=== PATIENT | male | born 1980 | race Caucasian/White ===

== ENCOUNTER 2019-10-01 10:04 | Emergency (ER) | payer MEDICAID, OTHER ==
[2019-10-01] MEDS ORDERED: Lidocaine 1% with EPINEPHrine 1:100,000 10 ML MDV INFILT ONE (10:05)
[2019-10-01] MEDS ORDERED: Diphtheria,Pertussis(Acell),Tetanus Vaccine 0.5 ML SDV IM ONE (11:02)
--- NOTE | 2019-10-01 11:08 | EDM.PDOC ---
ED HPI GENERAL MEDICAL PROBLEM - General Stated Complaint: CUT FINGER ON LEFT HAND Time Seen by Provider: 10/01/19 10:10 Source of Information: Reports: Patient History Limitations: Reports: No Limitations - History of Present Illness INITIAL COMMENTS - FREE TEXT/NARRATIVE: was digging behind his couch and brought his and out and noted a ut that was bleeding from the left middle finger , not able to control bleeding. Able to move finger no numbness or tingling noted. has not had tetanus vaccine - Related Data Allergies Allergy/AdvReac Type Severity Reaction Status Date / Time No Known Allergies Allergy Verified 10/01/19 11:05 Home Meds: Home Meds traZODone 50 mg PO BEDTIME 12/23/14 [History] Past Medical History - Past Health History Medical/Surgical History: Denies Medical/Surgical History Review of Systems - Review of Systems Review Of Systems: Comprehensive ROS is negative, except as noted in HPI. ED EXAM, GENERAL - Physical Exam Exam: See Below Exam Limited By: No Limitations General Appearance: Alert, WD/WN, No Apparent Distress Extremities: Normal Inspection Neurological: Alert, Oriented Psychiatric: Normal Affect Skin Exam: Other (laceration of ventral surface of the 3rd finger about 4cm lond a 0.3cm deep) Lymphatic: No Adenopathy ED TRAUMA EXTREMITY PROCEDURES - Laceration/Wound Repair Left Digit - 3rd (Middle) Lac/Wound Length In cm: 4 Appearance: Superficial, Irregular, Clean Distal NVT: Neuro & Vascular Intact Anesthetic Type: Digital Local Anesthesia - Lidocaine (Xylocaine): 1% with EPI Local Anesthetic Volume: 4cc Skin Prep: Chlorhexidine (Hibiciens), Saline, Sterile Drape Saline Irrigation (cc's): 15 Exploration/Debridement/Repair: Wound Explored Closed With: Sutures Suture Size: 5-0 # of Sutures: 6 Suture Type: Interrupted, Simple Sterile Dressing Applied: Nurse Tetanus Status Addressed: Yes Complications: No Course - Orders/Labs/Meds Orders: Active Orders 24 hr Category Date Time Status Vaccines to be Administered [RC] PER UNIT ROUTINE Care 10/01/19 11:02 Ordered Meds: Medications Discontinued Medications Generic Name Dose Route Start Last Admin Trade Name Freq PRN Reason Stop Dose Admin Diphtheria/Tetanus/Acell Pertussis 0.5 ml 10/01/19 11:02 Adacel IM 10/01/19 11:03 .ONCE ONE Departure - Departure Time of Disposition: 11:10 Disposition: Home, Self-Care 01 Condition: Good Clinical Impression: Laceration of finger of left hand - Discharge Information *PRESCRIPTION DRUG MONITORING PROGRAM REVIEWED*: Not Applicable *COPY OF PRESCRIPTION DRUG MONITORING REPORT IN PATIENT SHAHZAD: Not Applicable Instructions: Laceration Care, Adult, VIS, Diphtheria, Tetanus, and Pertussis ( DTaP) - [facility] [place] (01/14/2007), Wound Care, Adult, Sutured Wound Care, Stitches, Marshall, or Adhesive Wound Closure, [id number] Referrals: Landen Webber PA [Primary Care Provider] - Forms: ED Department Discharge - My Orders Last 24 Hours: My Active Orders 10/01/19 11:02 Vaccines to be Administered [RC] PER UNIT ROUTINE - Assessment/Plan Last 24 Hours: My Active Orders 10/01/19 11:02 Vaccines to be Administered [RC] PER UNIT ROUTINE
[2019-10-01 14:27] VITALS: BP 151/103; PULSE 91
== END 2019-10-01 11:20 | disposition home or self-care (01) ==
LOC: FB.ED 10:04
DX: S61.213A Laceration without foreign body of left middle finger without damage to nail, initial encounter (principal); Z23 Encounter for immunization; W45.8XXA Other foreign body or object entering through skin, initial encounter; Y93.89 Activity, other specified
CPT/HCPCS: 12002; 90471; 90715; 99282

== ENCOUNTER 2019-10-22 17:39 | Emergency (ER) | payer OTHER ==
[2019-10-22 17:59] VITALS: BP 136/86; PULSE 104
[2019-10-22] MEDS ORDERED: Baclofen 10 MG Tab PO ONE (18:06)
--- NOTE | 2019-10-22 18:11 | EDM.PDOC ---
ED HPI GENERAL MEDICAL PROBLEM - General Chief Complaint: Back Pain or Injury Stated Complaint: BACK PAIN Time Seen by Provider: 10/22/19 18:06 Source of Information: Reports: Patient History Limitations: Reports: No Limitations - History of Present Illness INITIAL COMMENTS - FREE TEXT/NARRATIVE: Patient complains of low back pain x 4-5 months, worse after slipping and falling 1 month ago. Pain does not radiate. He followed up with [facility] 2 weeks ago, lumbar xrays showed osteoarthritis (no fracture), per patient and was prescribed Toradol and Flexeril. He awoke this morning with worse pain, no improvement with above medications. Denies loss of numbness, tingling, weakness, or loss of bowel or bladder control. Patient also complains of intermittent rectal bleeding, only with wiping after a bowel movement, last occurrence was 4 days ago. Denies abdominal pain or N/V. Location: Reports: Back Lower Back Pain Score (Numeric/FACES): 7 - Related Data Allergies Allergy/AdvReac Type Severity Reaction Status Date / Time No Known Allergies Allergy Verified 10/22/19 17:54 Home Meds: Home Meds Baclofen 10 mg PO TID PRN #20 tablet 10/22/19 [Rx] Past Medical History Cardiovascular History: Reports: Hypertension Gastrointestinal History: Reports: Hemorrhoids Musculoskeletal History: Reports: Back Pain, Chronic Psychiatric History: Reports: Anxiety - Infectious Disease History Infectious Disease History: Reports: None Social & Family History - Family History Family Medical History: Noncontributory - Tobacco Use Smoking Status *Q: Current Every Day Smoker Tobacco Use Within Last Twelve Months: Cigarettes Years of Tobacco use: 10 Packs/Tins Daily: 2 - Caffeine Use Caffeine Use: Reports: None - Alcohol Use Alcohol Use History: Yes Alcohol Use in Last Twelve Months: Yes - Recreational Drug Use Recreational Drug Use: No ED ROS GENERAL - Review of Systems Review Of Systems: Comprehensive ROS is negative, except as noted in HPI. ED EXAM,LOWER BACK PAIN/INJURY - Physical Exam Exam: See Below Exam Limited By: No Limitations General Appearance: Alert, WD/WN, No Apparent Distress Ears: Normal External Exam Nose: Normal Inspection Throat/Mouth: No Airway Compromise Head: Atraumatic, Normocephalic Neck: Full Range of Motion Respiratory/Chest: No Respiratory Distress, Lungs Clear, Normal Breath Sounds Cardiovascular: Regular Rate, Rhythm, No Murmur Back Exam: Paraspinal Tenderness (bilateral lumbar) Extremities: Normal Range of Motion Neurological: Alert, Normal Mood/Affect, Normal Gait, No Motor/Sensory Deficits , Oriented x 3 DTR - Lower Extremities: 2+: Knee (R), Knee (L) Skin Exam: Warm, Dry Course - Vital Signs Last Recorded V/S: Last Vital Signs Temp 36.5 C 10/22/19 17:45 Pulse 104 H 10/22/19 17:45 Resp 18 10/22/19 17:45 BP 136/86 10/22/19 17:45 Pulse Ox 97 10/22/19 17:45 - Orders/Labs/Meds Meds: Medications Discontinued Medications Generic Name Dose Route Start Last Admin Trade Name Freq PRN Reason Stop Dose Admin Baclofen 10 mg 10/22/19 18:06 Lioresal PO 10/22/19 18:07 ONETIME ONE Departure - Departure Time of Disposition: 18:12 Disposition: Home, Self-Care 01 Condition: Good Clinical Impression: Rectal bleeding Chronic back pain Qualifiers: Back pain location: low back pain Back pain laterality: bilateral Sciatica presence: without sciatica Qualified Code(s): M54.5 - Low back pain; G89.29 - Other chronic pain - Discharge Information *PRESCRIPTION DRUG MONITORING PROGRAM REVIEWED*: Yes *COPY OF PRESCRIPTION DRUG MONITORING REPORT IN PATIENT SHAHZAD: No Prescriptions: Baclofen 10 mg PO TID PRN #20 tablet PRN Reason: Muscle Spasm Instructions: Rectal Bleeding, [id number], Chronic Back Pain, [id number] Referrals: Landen Webber PA [Primary Care Provider] - 3 Days Forms: ED Department Discharge Additional Instructions: Discontinue the Flexeril (Cyclobenzaprine). Continue the Toradol (Ketorolac). Fill the Baclofen prescription and take as directed. Follow up with your primary physician in 3 days. Sepsis Event Note - Evaluation Sepsis Screening Result: No Definite Risk - Focused Exam Vital Signs: Vital Signs Temp Pulse Resp BP Pulse Ox 10/22/19 17:45 36.5 C 104 H 18 136/86 97 Date Exam was Performed: 10/22/19 Time Exam was Performed: 18:12
== END 2019-10-22 18:29 | disposition home or self-care (01) ==
LOC: FB.ED 17:39
DX: M54.5 Low back pain (principal); G89.29 Other chronic pain; K62.5 Hemorrhage of anus and rectum; I10 Essential (primary) hypertension; F17.210 Nicotine dependence, cigarettes, uncomplicated
CPT/HCPCS: 99283; A9270-GY

== ENCOUNTER 2020-08-17 17:45 | Emergency (ER) | payer OTHER ==
[2020-08-17] MEDS ORDERED: Cyclobenzaprine 10 MG Tab PO ONE (18:10)
--- NOTE | 2020-08-17 18:44 | EDM.PDOC ---
ED HPI GENERAL MEDICAL PROBLEM - General Chief Complaint: Upper Extremity Injury/Pain Stated Complaint: HANDS LOCKING UP Time Seen by Provider: 08/17/20 18:00 Source of Information: Reports: Patient History Limitations: Reports: No Limitations - History of Present Illness INITIAL COMMENTS - FREE TEXT/NARRATIVE: Patient presented to the ED because of neck pain and bilateral numbness and tinging of his l wrist. There are occasions when his wrist will locked up and have to take muscle relaxer. - Related Data Allergies Allergy/AdvReac Type Severity Reaction Status Date / Time No Known Allergies Allergy Verified 10/22/19 17:54 Home Meds: Home Meds Baclofen 10 mg PO TID PRN #20 tablet 10/22/19 [Rx] Cyclobenzaprine [Flexeril] 10 mg PO TID PRN #15 tab 08/17/20 [Rx] Naproxen 500 mg PO BID PRN #30 tablet 08/17/20 [Rx] Past Medical History - Past Health History Medical/Surgical History: Denies Medical/Surgical History Cardiovascular History: Reports: Hypertension Gastrointestinal History: Reports: Hemorrhoids Musculoskeletal History: Reports: Back Pain, Chronic Psychiatric History: Reports: Anxiety - Infectious Disease History Infectious Disease History: Reports: None Social & Family History - Family History Family Medical History: No Pertinent Family History - Tobacco Use Tobacco Use Status *Q: Current Every Day Tobacco User Years of Tobacco use: 20 Packs/Tins Daily: 1 - Caffeine Use Caffeine Use: Reports: None - Alcohol Use Days Per Week of Alcohol Use: 4 Number of Drinks Per Day: 2 Total Drinks Per Week: 8 - Recreational Drug Use Recreational Drug Use: No Review of Systems - Review of Systems Review Of Systems: See Below Constitutional: Reports: No Symptoms Ears: Reports: No Symptoms Nose: Reports: No Symptoms Mouth/Throat: Reports: No Symptoms Respiratory: Reports: No Symptoms Cardiovascular: Reports: No Symptoms Genitourinary: Reports: No Symptoms Musculoskeletal: Reports: Neck Pain Skin: Reports: No Symptoms Neurological: Reports: No Symptoms ED EXAM, GENERAL - Physical Exam Exam: See Below Exam Limited By: No Limitations General Appearance: Alert, No Apparent Distress Ears: Normal External Exam, Normal Canal Nose: Normal Inspection, Normal Mucosa Throat/Mouth: Normal Inspection, Normal Lips, Normal Teeth Head: Atraumatic Neck: Normal Inspection, Supple, Non-Tender, Full Range of Motion Respiratory/Chest: No Respiratory Distress, Lungs Clear, Normal Breath Sounds Cardiovascular: Normal Peripheral Pulses, Regular Rate, Rhythm, No Edema, No Gallop, No JVD, No Murmur GI/Abdominal: Normal Bowel Sounds, Soft, Non-Tender, No Organomegaly, No Distention (Male) Exam: No Hernia, Normal Inspection Back Exam: Normal Inspection, Full Range of Motion Extremities: Normal Inspection, Normal Range of Motion Course - Vital Signs Text/Narrative:: Flexeril 10 mg PO x1 Wrist splint Last Recorded V/S: Last Vital Signs Temp 36.8 C 08/17/20 17:45 Pulse 112 H 08/17/20 17:45 Resp 17 08/17/20 17:45 BP 153/107 H 08/17/20 17:45 Pulse Ox 98 08/17/20 17:45 - Orders/Labs/Meds Meds: Medications Discontinued Medications Generic Name Dose Route Start Last Admin Trade Name Freq PRN Reason Stop Dose Admin Cyclobenzaprine HCl 10 mg 08/17/20 18:10 08/17/20 18:16 Flexeril PO 08/17/20 18:11 10 mg ONETIME ONE Administration Departure - Departure Time of Disposition: 18:40 Disposition: Home, Self-Care 01 Condition: Good Clinical Impression: Radiculopathy affecting upper extremity - Discharge Information Instructions: Cervical Radiculopathy, [id number], Radicular Pain Additional Instructions: Please read discharge instructions on radiculopathy Follow up with your doctor- you might need MRI of your cervical spine and also EMG/NCS(electromyography and nerve conduction studies) Take Naproxen 500 mg with tylenol 1000 mg twice daily as needed for pain Flexeril 10 mg 3 times daily for spasm Use the wrist when you sleep, see if there's any difference after 2 weeks of using it Sepsis Event Note (ED) - Evaluation Sepsis Screening Result: No Definite Risk - Focused Exam Vital Signs: Vital Signs Temp Pulse Resp BP Pulse Ox 08/17/20 17:45 36.8 C 112 H 17 153/107 H 98
[2020-08-17 18:56] VITALS: BP 151/94; PULSE 106
== END 2020-08-17 18:52 | disposition home or self-care (01) ==
LOC: FB.ED 17:45
DX: M54.10 Radiculopathy, site unspecified (principal); I10 Essential (primary) hypertension; F17.210 Nicotine dependence, cigarettes, uncomplicated; Z79.899 Other long term (current) drug therapy
CPT/HCPCS: 99283; A9270-GY